=== PATIENT | female | born 1945 | race Caucasian/White ===

== ENCOUNTER 2018-11-12 15:12 | Inpatient (IN) | payer OTHER ==
[2018-11-12] MEDS ORDERED: BENICAR40 MG PO (16:15)
[2018-11-12] MEDS ORDERED: ZOLOFT50 MG PO (16:15)
[2018-11-12] MEDS ORDERED: LIPITOR40 MG PO (16:16)
[2018-11-12] MEDS ORDERED: ASPIRIN81 M2 PO (16:17)
[2018-11-12] MEDS ORDERED: LOPRESSOR25 PO (16:17)
[2018-11-12 16:18] VITALS: BP 166/52
[2018-11-12] MEDS ORDERED: CALCIUM 500 +1 EAC5 PO (16:18)
[2018-11-12] MEDS ORDERED: B-12500 MCG PO (16:19)
[2018-11-12] MEDS ORDERED: FISH OIL 1,001000 M2 PO (16:19)
[2018-11-12] MEDS ORDERED: PREDNISONE 10 M10 MG PO ×2 (16:23→16:27)
[2018-11-12] MEDS ORDERED: NORCO 5-325 TA1 EAC1 PO (16:23)
[2018-11-12] MEDS ORDERED: CEFADROXIL 500500 M1 PO (16:25)
[2018-11-12 17:35] LABS: HEMATOCRIT 38.2 % (37.0-47.0); HEMOGLOBIN 12.5 gm/dL (12.0-15.0); MCH 29.4 pg (26.0-34.0); MCHC 32.8 g/dL (28.0-37.0); MCV 89.5 fL (80.0-100.0); RBC 4.27 mil/uL (4.20-5.00); RDW 14.9 % (10.5-14.5); WBC 12.3 thou/uL (4.0-11.0)
[2018-11-12 17:48] LABS: ALBUMIN 3.6 g/dL (3.4-5.0); CALCIUM 9.9 mg/dL (8.5-10.1); CREATININE 0.9 mg/dL (0.6-1.0); TOTAL BILIRUBIN 0.4 mg/dL (<0.1-1.0); TOTAL PROTEIN 7.3 g/dL (6.4-8.2)
--- NOTE | 2018-11-12 18:33 | NUR ---
PATIENT ARRIVED AT 1645, FROM DR ANDRE'S OFFICE. ALERT AND ORIENTED X. DENIES ANY DISOCMFORT. ADMISSION COMPLETED AND MED REC DONE. POC INITIATED AND WILL CONNTINUE TO MONITOR.
[2018-11-12 19:36] VITALS: BP 175/54
[2018-11-12 19:42] LABS: APTT 25.6 Seconds (24.5-32.8); PROTIME 10.1 Seconds (9.3-11.4)
[2018-11-13 04:52] VITALS: BP 179/75
[2018-11-13 05:28] LABS: HEMATOCRIT 34.9 % (37.0-47.0); HEMOGLOBIN 11.4 gm/dL (12.0-15.0); MCH 29.4 pg (26.0-34.0); MCHC 32.7 g/dL (28.0-37.0); RBC 3.88 mil/uL (4.20-5.00); WBC 9.6 thou/uL (4.0-11.0)
[2018-11-13 05:58] LABS: CALCIUM 8.7 mg/dL (8.5-10.1); CREATININE 0.8 mg/dL (0.6-1.0); POTASSIUM 3.6 mmol/L (3.5-5.1)
--- NOTE | 2018-11-13 07:18 | NUR ---
ASSUME CARE 1900. PT/VITALS STABLE. DENIES ANY PAIN . PT IS UP AD ALEX. NO BREATHING DISTRESS NOTED. SR ON MONITOR. PROGRESSING WITH POC. ASSESSMENT CHARTED. PLAN IS CONTINUE WITH ABX, BREATHING TREATMENTS AND STEROIDS. POSSIBLE THORACENTESIS TODAY WITH CULTURES TO BE SENT. WILL CONTINUE TO MONITOR AND FOLLOW WITH POC
[2018-11-13 08:10] VITALS: BP 166/60
--- NOTE | 2018-11-13 09:06 | NUR ---
ASSUMED CARE OF PT APPROX 0715, AMB STEADY AND SOA D/T SOA, EDUCATED ON THE DEEP SLOW IHALATIONS/LONGER SLOWER EXHALE SHE HAS A TENDENCY TO DO FAST SHALLOW BREATHS, IV ABX RUNNING. WILL GIVE PO MEDS FOR HTN AFTER PROCEDURE. ENCOURAGED PT TO USE CALL LIGHT AFTER RETURN TO ROOM SO WE CAN GET HER SOME FOOD PER PHYSICIAN. SPOUSE AT BEDSIDE. CALLED US TO FIND OUT WHEN POSSIBLE ETA IS THEY DIDN'T KNOW OF YET BUT SAID THEY'D LET US KNOW IN A BIT. ENCOURAGED BOTH TO USE CALL LIGHT FOR ANY NEEDS
[2018-11-13 11:00] VITALS: BP 157/55
[2018-11-13 13:23] LABS: COLOR RED; SOURCE CHEST FLUID; TOTAL VOLUME 60 mL
[2018-11-13 13:24] LABS: CLARITY TURBID
[2018-11-13 13:46] LABS: BF NUCLEATED CELLS 3882; BF RBC 3480608
[2018-11-13 15:27] VITALS: BP 172/57
[2018-11-13 15:35] LABS: BF MACROPHAGE 15; BF NEUTROPHILS 47
[2018-11-13 20:15] VITALS: BP 132/59
[2018-11-14 00:30] VITALS: BP 157/59
--- NOTE | 2018-11-14 03:02 | NUR ---
ASSESSMENT DOCUMENTED.PT BEEN RESTING IN NO ACUTE DISTRESS.VSS.ON RA.UP AD ALEX TO BR.SHALLOW BREATHING,O2 SAT ADEQUATE.DENIES PAIN OR ANY DISTRESS AT THIS TIME AT THIS TIME.WILL CONT WITH POC.
[2018-11-14 04:45] VITALS: BP 145/53
[2018-11-14 06:40] LABS: SOURCE CHEST
[2018-11-14 08:07] VITALS: BP 168/62
--- NOTE | 2018-11-14 08:16 | NUR ---
PT IS A&0X4, AMB INDEPENDENTLY, HER SOA IS GIVING HER ANXIETY YET MUCH BETTER THAN YESTERDAY PER PT, SHE STATES SHE CAN TAKE A DEEP BREATH WITHOUT A LOT OF COUGHING. AGAI RE-EDUCATED, GENTLY, TO DO DEEP SLOW, NOT SHALLOW, LONG INHAL/LONGER EXHALATIONS. SPOUSE AT BEDSIDE. CXR SCHEDULED THIS A.M. GAVE MEDS, INCLUDING ANTIANXIETY, WHICH IS ONLY SCHEDULED BID 0.25MG XANAX, PRIOR. ENCOURAGED PT AND SPOUSE TO USE CALL LIGHT FOR ANY NEEDS
[2018-11-14] MEDS ORDERED: DOXYCYCLINE 10100 MG PO (09:45)
[2018-11-14 10:49] VITALS: BP 168/62
[2018-11-15 07:08] LABS: BODY FLUID ALBUMIN 2.5 g/dL (()); BODY FLUID AMYLASE 23 U/L (()); BODY FLUID GLUCOSE 72 mg/dL (()); BODY FLUID LDH 593 IU/L (()); BODY FLUID PROTEIN 3.9 g/dL (())
== END 2018-11-14 11:38 | disposition home or self-care (01) | DRG 188 ==
LOC: 2N 15:12
PROVIDERS: Internal Medicine Pulmonary Disease; Nurse Practitioner Adult Health; ADMIT Internal Medicine Cardiovascular Disease
PROC: 0W993ZZ Drainage of Right Pleural Cavity, Percutaneous Approach (ICD-10-PCS; principal; 2018-11-13)
DX: J90 Pleural effusion, not elsewhere classified (principal); I25.10 Atherosclerotic heart disease of native coronary artery without angina pectoris; I73.9 Peripheral vascular disease, unspecified; I10 Essential (primary) hypertension; E78.5 Hyperlipidemia, unspecified; I65.29 Occlusion and stenosis of unspecified carotid artery; F17.210 Nicotine dependence, cigarettes, uncomplicated; Z79.82 Long term (current) use of aspirin; I25.5 Ischemic cardiomyopathy; Z79.899 Other long term (current) drug therapy; Z88.5 Allergy status to narcotic agent; Z95.5 Presence of coronary angioplasty implant and graft; Z82.49 Family history of ischemic heart disease and other diseases of the circulatory system; I25.2 Old myocardial infarction; Z71.6 Tobacco abuse counseling; Z90.49 Acquired absence of other specified parts of digestive tract; Z90.710 Acquired absence of both cervix and uterus
CPT/HCPCS: 10797

== ENCOUNTER → 2019-08-30 | Outpatient (CLI) | payer OTHER ==
[~2019-08-30] MED LIST: ASPIRIN81 M2 PO; B-12500 MCG PO; BENICAR40 MG PO; CALCIUM 500 +1 EAC5 PO; CEFADROXIL 500500 M1 PO; DOXYCYCLINE 10100 MG PO; FISH OIL 1,001000 M2 PO; LIPITOR40 MG PO; LOPRESSOR25 PO; NORCO 5-325 TA1 EAC1 PO; PREDNISONE 10 M10 MG PO; ZOLOFT50 MG PO
== END ==
LOC: SJCVC 09:50
PROVIDERS: ATTEND Internal Medicine Cardiovascular Disease
DX: R94.31 Abnormal electrocardiogram [ECG] [EKG] (principal); I25.10 Atherosclerotic heart disease of native coronary artery without angina pectoris; R00.1 Bradycardia, unspecified; I25.5 Ischemic cardiomyopathy; I10 Essential (primary) hypertension; E78.5 Hyperlipidemia, unspecified; F17.210 Nicotine dependence, cigarettes, uncomplicated; Z95.5 Presence of coronary angioplasty implant and graft; Z79.899 Other long term (current) drug therapy; Z87.09 Personal history of other diseases of the respiratory system

== ENCOUNTER → 2019-09-13 | Outpatient (CLI) | payer OTHER | LOC: SJCVCIMAG 09-06 09:50 | PROVIDERS: ATTEND Internal Medicine Cardiovascular Disease | DX: I25.10 Atherosclerotic heart disease of native coronary artery without angina pectoris (principal); I10 Essential (primary) hypertension; E78.5 Hyperlipidemia, unspecified; Z98.61 Coronary angioplasty status ==

== ENCOUNTER → 2020-06-08 | Outpatient (CLI) | payer OTHER | LOC: SJCVC 11:36 | PROVIDERS: ATTEND Internal Medicine Cardiovascular Disease | DX: I25.10 Atherosclerotic heart disease of native coronary artery without angina pectoris (principal); I10 Essential (primary) hypertension; E78.5 Hyperlipidemia, unspecified; I25.5 Ischemic cardiomyopathy; I65.29 Occlusion and stenosis of unspecified carotid artery; E78.00 Pure hypercholesterolemia, unspecified; E11.9 Type 2 diabetes mellitus without complications; Z87.09 Personal history of other diseases of the respiratory system; Z87.891 Personal history of nicotine dependence; Z79.82 Long term (current) use of aspirin; Z79.899 Other long term (current) drug therapy; Z88.5 Allergy status to narcotic agent; Z95.5 Presence of coronary angioplasty implant and graft ==